=== PATIENT | female | born 1960 | race Caucasian/White ===

== ENCOUNTER 2018-06-03 11:27 | Inpatient (IN) ==
--- NOTE | 2018-06-03 11:45 | MH ---
cc: Mundo Barba MD DATE OF ADMISSION: 06/03/2018 INDICATIONS: This is a 57-year-old who has had diverticulitis for the past 2 weeks. She was initially on oral antibiotics at home and then was admitted to the hospital in [place] due to worsening symptoms. She was discharged from the [facility] approximately [address] scan prior to admission identified a significant diverticular segment with inflammation without perforation or abscess. The patient initially was making improvement with treatment, but in the last 24 hours has noted worsening discomfort and feels it is worse when she was admitted to the hospital. She has been bothered by some loose stool. In addition, her last colonoscopy was in 2014, which was not completed due to a tortuous sigmoid colon. A subsequent CT colonography was negative. She was examined in my office today and is in some distress from abdominal discomfort and had moderate abdominal tenderness and it was felt that she was not improving with oral antibiotic treatment. The patient was admitted to the hospital for IV antibiotics and followup CAT scan. PAST MEDICAL HISTORY: The patient is otherwise in good health with no other medications. She is currently taking Flagyl and Cipro. She has had a previous hysterectomy for fibroid disease 3 years ago. She she states both ovaries were removed. She has a pessary in the vagina. She has had a previous tummy tuck procedure. PHYSICAL EXAM: On exam, she is alert and uncomfortable due to abdominal discomfort. HEAD, EARS, EYES, NOSE, THROAT: Grossly normal. LUNGS: Respirations are normal. SKIN: Warm and dry. ABDOMEN: Soft in the upper abdomen. There is some firmness and moderate tenderness in the left lower quadrant and to a lesser degree on the right. ANUS: Examination of anus shows thrombosed hemorrhoids and recent diarrhea. Digital was otherwise negative. A sigmoidoscopy shows diverticular openings and patchy inflammation of the sigmoid consistent with diverticulitis. The rectum was normal. PELVIC: Reveals induration in the pelvis, but no mass. EXTREMITIES AND NEUROLOGIC: Exam is grossly normal. ASSESSMENT: Persistent diverticulitis that is not improving with oral antibiotics. PLAN: Recommend admission to the hospital for IV antibiotics and repeat CT scanning. Mundo Barba MD DLM/DL , 10:49 AM , 11:20 AM
[2018-06-03] MEDS: Sod Chloride 0.9% Inj 1,000 ML IV.SIG SCH (18:18)
[2018-06-03] MEDS ORDERED: Levofloxacin 500 mg Premix Inj 500 MG/100 ML PIGGYBACK IV.SIG ONE (19:00)
[2018-06-03] MEDS ORDERED: Sod Phosphate/Sod Biphosphate (Adult) Enema 133 ML Bottle RECTAL ONE (20:00)
[2018-06-03 20:54] LABS: Baso % (Auto) 0.4 % (0.0-2.0); Eos # (Auto) 0.1 th/mm3 (0.0-0.4); Eos % (Auto) 1.1 % (0.0-4.0); Hematocrit 36.5 % (35.0-46.0); Lymph # (Auto) 2.6 th/mm3 (1.0-4.8); Lymph % (Auto) 30.2 % (9.0-44.0); Mean Corpuscular HGB Conc 32.9 % (32.0-36.0); Mean Corpuscular Hemoglobin 29.9 pg (27.0-34.0); Mean Corpuscular Volume 90.6 fL (80.0-100.0); Mean Platelet Volume 8.2 fL (7.0-11.0); Mono # (Auto) 0.6 th/mm3 (0.0-0.9); Mono % (Auto) 7.5 % (0.0-8.0); Neut # (Auto) 5.2 th/mm3 (1.8-7.7); Neut % (Auto) 60.8 % (16.0-70.0); Platelet Count 479 th/mm3 (150-450); Red Blood Count 4.03 mil/mm3 (4.00-5.30); White Blood Count 8.6 th/mm3 (4.0-11.0)
[2018-06-03] MEDS ORDERED: Diatrizoate Meglum/Diatrizoate Sod Liq 9 ML UDC PO ONE (21:00)
[2018-06-03 21:08] LABS: Calcium 9.5 mg/dL (8.5-10.1); Carbon Dioxide 25.4 meq/L (21.0-32.0); Potassium 3.6 meq/L (3.5-5.1)
--- NOTE | 2018-06-04 00:52 | CT ---
EXAM DATE: 06/04/2018 12:34 AM EDT AGE/SEX: 57 years / Female INDICATIONS: Abdominal pain. CLINICAL DATA: This is the patient's initial encounter. Patient reports that signs and symptoms have been present for 2 weeks and indicates a pain score of 7/10. MEDICAL/SURGICAL HISTORY: Diverticulitis. Appendectomy. Cholecystectomy. Hysterectomy. ORAL CONTRAST: Prescribed oral contrast ingested. RADIATION DOSE: 5.60 CTDI (mGy) COMPARISON: No prior exams available for comparison. TECHNIQUE: Multiple contiguous axial images were obtained through the abdomen and pelvis following b olus infusion of 80 ml Omnipaque 350 (iohexol) nonionic water-soluble contrast as a single exam dos e. Prescribed oral contrast ingested. Using automated exposure control and adjustment of the mA and/ or kV according to patient size, radiation dose was kept as low as reasonably achievable to obtain op timal diagnostic quality images. DICOM format image data is available electronically for review and comparison. FINDINGS: 8mm nonspecific faint hypodensity seen of the right hepatic lobe. Liver otherwise appears normal. Pat ient has had previous cholecystectomy. Spleen, pancreas, adrenal glands and right kidney are normal. 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 There is diverticulosis of the sigmoid colon. The sigmoid colon appears mildly indurated distally. Ju st downstream of this near the rectosigmoid junction is a intraluminal mass like area that measures a pproximately 3.3 cm in size. This is conceivably a stool ball but a true mass is not excludable. No a bscess, perforation or obstruction. There is no free fluid. No acute bony abnormality demonstrated. Visualized lung bases are clear. Pessary device incidentally noted. Patient appears to have had previous hysterectomy. CONCLUSION: 1. Mild uncomplicated diverticulitis of the distal sigmoid colon. 2. Masslike stool versus true mass at the level of the rectosigmoid junction. Direct visualization w ith colonoscopy recommended if not done recently. A follow-up pelvic CT within a week or 2 could also be helpful in further evaluating. 3. Nonspecific but most likely benign subcentimeter hypodensity of the right hepatic lobe. 4. Previous cholecystectomy. [place] type prominence of the common bile duct. 5. 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 Electronically signed by: Cruz Boudreaux MD 06/04/2018 12:51 AM EDT
[2018-06-04] MEDS: Sod Chloride 0.9% Inj 1,000 ML IV.SIG SCH (15:18)
--- NOTE | 2018-06-04 19:13 | P.PNCS ---
Subjective Interval history: C/R Surg Afebrile, VSS Voiding negro PO liquids pain much better Objective Vital Signs/Intake & Output: Vital Signs Intake & Output Result Diagrams: 06/03/18 20:24 06/03/18 20:24 Laboratory Results: Laboratory Results - last 24 hr 06/03/18 06/03/18 06/03/18 20:24 20:24 20:24 WBC 8.6 RBC 4.03 Hgb 12.0 Hct 36.5 MCV 90.6 MCH 29.9 MCHC 32.9 RDW 13.0 Plt Count 479 H MPV 8.2 Neut % (Auto) 60.8 Lymph % (Auto) 30.2 [place] % (Auto) 7.5 Eos % (Auto) 1.1 Baso % (Auto) 0.4 Neut # (Auto) 5.2 Lymph # (Auto) 2.6 [place] # (Auto) 0.6 Eos # (Auto) 0.1 Baso # (Auto) 0.0 WBC Differential . Differential Comment Auto diff final Sodium 140 Potassium 3.6 Chloride 105 Carbon Dioxide 25.4 Anion Gap 10 BUN 7 6 L Creatinine 0.75 0.80 Estimated GFR 79 L BUN/Creatinine Ratio 8 L Random Glucose 116 H Calcium 9.5 Imaging Studies: Impressions Abdomen/Pelvis CT 06/04/18 00:00 CONCLUSION: 1. Mild uncomplicated diverticulitis of the distal sigmoid colon. 2. Masslike stool versus true mass at the level of the rectosigmoid junction. Direct visualization with colonoscopy recommended if not done recently. A follow -up pelvic CT within a week or 2 could also be helpful in further evaluating. 3. Nonspecific but most likely benign subcentimeter hypodensity of the right hepatic lobe. 4. Previous cholecystectomy. [place] type prominence of the common bile duct. 5. 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 Medications: Active Medications Objective Remarks: PE alert Abd - soft, non-tender, min tympany Assessment and Plan - Plan Imp: stable - OOB incr PO hep lock IVF dc plans
[2018-06-05] MEDS: Sod Chloride 0.9% Inj 1,000 ML IV.SIG SCH (04:49)
--- NOTE | 2018-06-05 10:29 | P.PNCS ---
Subjective Interval history: C/R Surg afebrile, VSS NO pain BM ok negro PO Objective Vital Signs/Intake & Output: Vital Signs 06/04/18 12:00 06/04/18 16:00 06/04/18 20:00 Temperature 98.1 F 98.3 F 98.1 F Pulse Rate 71 68 71 Respiratory Rate 18 18 17 Blood Pressure 116/67 119/64 123/71 Pulse Oximetry 97 98 98 06/05/18 00:00 06/05/18 00:31 06/05/18 05:43 Temperature 97.7 F Pulse Rate 58 L Respiratory Rate 17 18 Blood Pressure 125/74 Pulse Oximetry 98 98 Intake & Output 06/04/18 06/05/18 06/05/18 18:59 06:59 18:59 Intake Total 1820 / 1820 1300 / 1300 Balance 1820 / 1820 1300 / 1300 Weight 61.6 kg Intake: IV 1100 / 1100 1300 / 1300 NS Inj 1,000 ML @ 60 mls/hr IV. 1000 / 1000 1000 / 1000 SIG .[id number] [facility] Rx#:[id number] Rocephin Inj 1,000 MG In NS Inj 100 / 100 100 ML @ 200 mls/hr IV.SIG Q24H [facility] Rx#:[id number] Flagyl 500 MG Inj 100 ML @ 100 100 / 100 200 / 200 mls/hr IV.SIG Q8H [facility] Rx#: [id number] Oral 720 / 720 Other: # Voids 4 2 Date of Last Bowel Movement 06/04/18 06/04/18 06/04/18 # Bowel Movements 1 Result Diagrams: 06/03/18 20:24 06/03/18 20:24 Medications: Active Medications Objective Remarks: PE alert Abd - soft, non-tender, no mass Assessment and Plan - Plan Imp: stable - OOB incr PO hep lock IVF dc plans - rto 2 weeks
== END 2018-06-05 12:15 | disposition home or self-care (01) ==
LOC: N06 16:03
PROVIDERS: ADMIT Colon & Rectal Surgery; ATTEND Colon & Rectal Surgery
DX: K57.32 Diverticulitis of large intestine without perforation or abscess without bleeding